=== PATIENT | male | born 1965 | race African-American/Black ===

== ENCOUNTER 2018-04-01 21:23 | Emergency (ER) | payer OTHER ==
[~2018-04-01] VITALS: Ht 180.3 cm; Wt 93.4 kg
--- NOTE | ~2018-04-01 | EKG ---
[place] [address] [facility] [place] [address] ELECTROCARDIOGRAM REPORT Name: SIABEL CHILD Room #: DEP JULIANNA Myers#: [id number] Admission: 04/01/18 Attend Phys: Discharge: 04/02/18 Date of : 65 Report #: [id number] THIS REPORT FOR: //name// [facility] ED Test Date: 2018-04-01 Test Time: 23:28:57 Pat Name: ISABEL CHILD Department: Room: Gender: M Manager Sound: MARLYS : 1965 Requested By: Allan Nolasco Order Number: [id number] MD: Tony Davis Measurements Intervals [place] Rate: 68 P: 11 OR: 161 QRS: -33 QRSD: 103 T: 148 QT: 404 QTc: 430 Interpretive Statements Sinus rhythm Probable left atrial enlargement LVH with secondary repolarization abnormality Anterior ST elevation, probably due to LVH Unchanged from previous No previous ECG available for comparison Electronically Signed On 04-02-2018 14:21:28 [employer] 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
--- NOTE | ~2018-04-01 | EKG ---
[place] [address] [facility] 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: BIA : 1965 Requested By: Allan Nolasco Order Number: [id number] MD: Tony Davis Measurements Intervals [place] Rate: 83 P: 72 HI: 158 QRS: -34 QRSD: 104 T: 140 QT: 397 QTc: 467 Interpretive Statements Sinus rhythm Left atrial enlargement Left ventricular hypertrophy Abnrm T, consider ischemia, anterolateral lds Anterior ST elevation, probably due to LVH No previous ECG available for comparison Electronically Signed On 04-02-2018 14:20:50 [employer] 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
[2018-04-01 22:03] LABS: BASOPHILS 0.7 % (0.0-2.0); EOSINOPHILS 1.4 % (0.0-3.0); HEMATOCRIT 42.5 % (42.0-52.0); HEMOGLOBIN 14.5 gm/dL (14.0-18.0); LYMPHOCYTES 19.3 % (24.0-44.0); MCH 31.2 pg (26.0-34.0); MCHC 34.1 g/dL (28.0-37.0); MCV 91.6 fL (80.0-100.0); MONOCYTES 9.8 % (1.0-8.0); PLATELET COUNT 205 thou/uL (150-400); POLYS 68.8 % (36.0-66.0); RBC 4.64 mil/uL (4.50-6.00); RDW 14.7 % (10.5-14.5); WBC 11.7 thou/uL (4.0-11.0)
[2018-04-01 22:10] LABS: CALCIUM 8.8 mg/dL (8.5-10.1); CREATININE 1.2 mg/dL (0.7-1.3); POTASSIUM 3.7 mmol/L (3.5-5.1)
[2018-04-01 22:16] LABS: ALBUMIN 3.7 g/dL (3.4-5.0); TOTAL BILIRUBIN 0.3 mg/dL (<0.1-1.0); TOTAL PROTEIN 7.3 g/dL (6.4-8.2)
[2018-04-02 00:14] LABS: URINE BILIRUBIN NEGATIVE (Negative); URINE BLOOD NEGATIVE (Negative); URINE CLARITY CLEAR; URINE COLOR YELLOW; URINE GLUCOSE-RANDOM* NEGATIVE (Negative); URINE KETONES NEGATIVE (Negative); URINE LEUKOCYTES-REFLEX NEGATIVE (Negative); URINE NITRITE-REFLEX NEGATIVE (Negative); URINE PROTEIN (DIPSTICK) NEGATIVE (Negative)
[2018-04-02] MEDS ORDERED: NORCO 5-325 TA1 EACH PO (00:18)
[2018-04-02] MEDS ORDERED: AZITHROMYCIN 2250 MG PO (00:18)
[2018-04-02] MEDS ORDERED: LISINOPRIL5 MG PO (00:18)
[2018-04-02 00:36] VITALS: BP 163/88
== END 2018-04-02 00:38 | disposition home or self-care (01) ==
LOC: ER 21:23
PROVIDERS: Emergency Medicine
DX: J18.9 Pneumonia, unspecified organism (principal); M54.6 Pain in thoracic spine; I10 Essential (primary) hypertension

== ENCOUNTER 2020-02-04 01:21 | Emergency (ER) | payer OTHER ==
[~2020-02-04] VITALS: Ht 172.7 cm; Wt 90.7 kg
[~2020-02-04 01:21] MED LIST: AZITHROMYCIN 2250 MG PO; LISINOPRIL5 MG PO; NORCO 5-325 TA1 EACH PO
[2020-02-04 01:32] VITALS: BP 00/00
== END 2020-02-04 01:32 ==
LOC: ER 01:21
DX: I46.9 Cardiac arrest, cause unspecified (principal); I10 Essential (primary) hypertension; Z79.2 Long term (current) use of antibiotics; Z79.899 Other long term (current) drug therapy